=== PATIENT | female | born 1960 | race Caucasian/White ===

== ENCOUNTER 2016-06-19 16:33 | Emergency (ER) | payer BC, OTHER ==
[~2016-06-19 16:33] MED LIST: BIRTH CONTROL PILL; CALTRATE 600 +1 EAC2 PO; ELAVIL10 MG; ESTRACE1 M3 PO; LEXAPRO10 MG PO; LEXAPRO20 MG; METHOCARBAMOL750 M1 PO; MULTIPLE VITAMI1 TAB PO; NORCO 5-325 TA1 EACH PO; NORCO 5/325 TAB1 TAB PO; SYNTHROID75 MC1 PO
== END 2016-06-19 16:56 ==
LOC: EDMED 16:33
DX: S16.1XXA Strain of muscle, fascia and tendon at neck level, initial encounter (principal); S39.012A Strain of muscle, fascia and tendon of lower back, initial encounter; S29.012A Strain of muscle and tendon of back wall of thorax, initial encounter; S80.02XA Contusion of left knee, initial encounter; V49.40XA Driver injured in collision with unspecified motor vehicles in traffic accident, initial encounter; Y92.410 Unspecified street and highway as the place of occurrence of the external cause
CPT/HCPCS: J1885